=== PATIENT | female | born 1970 | race Caucasian/White ===

== ENCOUNTER → 2018-10-04 | Emergency (ER) | payer BC ==
[2018-10-04] MEDS: IBUPROFEN 600 MG TAB PO (16:47)
[2018-10-04] MEDS: ONDANSETRON (ODT) 4 MG TAB ODT (16:47)
[2018-10-04] MEDS: morphine LIQ (10 MG/5 ML) CUP PO (16:48)
== END | disposition home or self-care (01) ==
LOC: FTE 16:00
DX: S52.531A Colles' fracture of right radius, initial encounter for closed fracture (principal); W18.2XXA Fall in (into) shower or empty bathtub, initial encounter; Y92.9 Unspecified place or not applicable
CPT/HCPCS: 29105; 73090-RT; 73130-RT; 99283-25